=== PATIENT | female | born 1975 | race Caucasian/White ===

== ENCOUNTER 2017-06-15 05:53 | Inpatient (IN) | payer BC ==
[2017-06-13 15:11] LABS: WBC (NOT ORDERED) (RFLEX) 0 (0-5)
[2017-06-13 15:52] LABS: BASOPHILS 0.1 %; BASOPHILS ABSOLUTE 0.01 10/3/uL (0.0-0.16); EOSINOPHILS 1.3 %; EOSINOPHILS ABSOLUTE 0.12 10/3/uL (0.0-0.53); HEMATOCRIT 39.7 % (36.0-48.0); HEMOGLOBIN 12.9 g/dL (12.0-16.0); IMMATURE GRANULOCYTES 0.2 %; IMMATURE GRANULOCYTES ABSOLUTE 0.02 10/3/uL (0.0-0.11); LYMPHOCYTES 37.9 %; LYMPHOCYTES ABSOLUTE 3.37 10/3/uL (0.67-4.30); MEAN CORPUS HGB CONC 32.5 g/dL (32.0-36.0); MEAN CORPUSCULAR HEMOGLOB 29.7 pg (26.0-34.0); MEAN PLATELET VOLUME 11.5 fL (9.2-13.0); MONOCYTES ABSOLUTE 0.62 10/3/uL (0.21-1.20); NEUTROPHILS 53.5 %; NEUTROPHILS ABSOLUTE 4.75 10/3/uL (2.02-8.40); PLATELET COUNT 268 10/3/uL (150-400); RBC DISTRIBUTION WIDTH 13.2 % (12.0-16.0); RED CELL COUNT 4.34 10/6/uL (4.0-5.6); WHITE BLOOD CELLS 8.9 10/3/uL (4.5-10.5)
[2017-06-13 15:53] LABS: MANUAL DIFF NO %; MEAN CORPUSCULAR VOLUME 91.5 fL (80-100)
[2017-06-13 15:59] LABS: INTERNATIONAL NORMAL RATI 1.1 UNITS (-); PROTIME (NOT ORD) 13.9 SEC (12.0-14.5)
[2017-06-13 16:43] LABS: ALBUMIN 3.9 G/DL (3.5-5.0); ALKALINE PHOSPHATASE 58 U/L (45-117); BUN (BLOOD UREA NITROGEN) 15 MG/DL (6-23); CALCIUM, SERUM 9.3 MG/DL (8.5-10.4); CHLORIDE, SERUM 104 MMOL/L (96-112); CHOL/HDL RATIO(NOT ORDER) 3.6 (0-5); CHOLESTEROL 178 MG/DL (< 200); CO2 (CARBON DIOXIDE) 27 MMOL/L (24-34); CREATININE 0.78 MG/DL (0.55-1.02); GFR AFRICAN AMERICAN 109 ML/MIN (>=60); GFR NON AFRICAN AMERICAN 94 ML/MIN (>=60); GLOBULIN 3.8 G/DL (2.5-4.1); GLUCOSE, SERUM 88 MG/DL (60-99); HDL CHOLESTEROL 49 MG/DL (> 49); IRON, SERUM 41 MCG/DL (35-150); LDL CHOLESTEROL 106 MG/DL (< 130); NON-HDL CHOLESTEROL 129 MG/DL (< 160); POTASSIUM, SERUM 3.7 MMOL/L (3.5-5.3); SGOT(AST) 33 U/L (5-40); SGPT(ALT) 57 U/L (5-65); SODIUM, SERUM 140 MMOL/L (135-148); TOTAL BILIRUBIN 0.5 MG/DL (0-1.2); TOTAL PROTEIN 7.7 G/DL (6.0-8.5); TRIGLYCERIDE 119 MG/DL (< 150)
[2017-06-13 16:44] LABS: FOLATE 43.8 NG/ML (>5.2)
[2017-06-13 17:01] LABS: ASCORBIC ACID (UR NOT ORDER) NEG (NEG); BILIRUBIN, URINE NEGATIVE (NEG); KETONE, URINE 20 MG/DL (NEG); LEUKOCYTE ESTERASE(NOT OR NEG (NEG)
[~2017-06-15] VITALS: Ht 157.5 cm; Wt 106.4 kg
--- NOTE | ~2017-06-15 | OP ---
Record Of Operation [facility] [place] [address] [place]. [address] NAME: TAHMINA ORNELAS : 77 STATUS : ADM IN PAT#: [id number] AGE: 42 ADM/REG DATE : 06/15/17 MR#: [id number] REPORT SERV DATE: 06/15/17 DICTATED BY: ESPERANZA CABRERA DATE: 06/15/17 REPORT STATUS : Draft TRANSCRIBED BY: DELFINO DATE: 06/15/17 DATE OF PROCEDURE: PREOPERATIVE DIAGNOSIS: Morbid obesity. POSTOPERATIVE DIAGNOSIS: Morbid obesity. OPERATION: Laparoscopic sleeve gastrectomy. ANESTHESIA: General endotracheal. COMPLICATIONS: None. INDICATION FOR OPERATION: This is a 42-year-old white female with morbid obesity with a BMI of 40 and a weight of 222.2 pounds and associated insulin-resistant polycystic ovarian syndrome, hypertension, arthropathy, GE reflux disease, and urinary incontinence. DESCRIPTION OF OPERATION: The patient was taken to the operating room, and after adequate anesthesia, she was prepped and draped in a sterile manner. A total of five trocars were placed in the upper abdomen and carefully we the left lobe of the liver and carefully we identified the upper stomach anatomy. I removed some of the epiphrenic fat pad on top of the stomach. I did not see any evidence of any significant hiatal defect. Each junction was in the intraabdominal position. We were able to enter the lesser sac at the level of the lower body of the stomach next to the greater curvature with the Harmonic scalpel and then dissected the greater curvature all the way up to the fundus and mobilized the fundus all the way up to the left ulises. The left ulises was completely dissected posteriorly and all the posterior attachments were taken down to mobilize completely the stomach and then continued dissection in the greater curvature all the way down to the distal antrum to about 3 cm or so from the pylorus. Then, we introduced a 36-Indian blunt- tip bougie suction catheter all the way down to the distal antrum and put it on suction to delineate well the stomach and started stapling about 5 cm from the pylorus using the [place] automatic stapler with a green load and staple reinforcement using the Seamguard. We used a total of four staplings from the bottom to the top. Staple line looked intact. There was no evidence of bleeding or oozing. After checking the staple line, she was having a little bit of oozing on the top stapling, so we did put a suture in a [id number] on the bleeding spot with a piece of omentum sutured on top of it and that stopped the oozing. Then, we tacked the greater omentum into the staple line to the top, middle, and lower portion with interrupted Vicryl 2-0 sutures. I removed the calibration tube and put it in and out to verify there was no evidence of obstruction and then removed the stomach specimen through the 15 mm trocar site after we stretched it with a Zoë and then closed that fascial defect with an EFx fascial closure device using a Vicryl #0. I then removed all the trocars and liver retractor under direct visualization and closed all the incision with subcuticular Monocryl 4-0. The patient tolerated the procedure well, did not have any problems. Record Of Operation [address] [place]. [address] NAME: TAHMINA ORNELAS : 77 STATUS : ADM IN [facility]#: [id number] AGE: 42 ADM/REG DATE : 06/15/17 MR#: [id number] REPORT SERV DATE: 06/15/17 DICTATED BY: ESPERANZA CABRERA DATE: 06/15/17 REPORT STATUS : Draft TRANSCRIBED BY: DELFINO DATE: 06/15/17 ADY Esperanza Lubin M.D. / [id number] CC: Esperanza Cabrera M.D.
--- NOTE | ~2017-06-15 | HP ---
History And Physical [facility] [address] [place]. [address] NAME: TAHMINA ORNELAS : 77 STATUS : PRE IN PAT#: [id number] AGE: 42 ADM/REG DATE : MR#: [id number] REPORT SERV DATE: 06/14/17 DICTATED BY: ESPERANZA CABRERA DATE: 06/14/17 REPORT STATUS : Draft TRANSCRIBED BY: MODL DATE: 06/14/17 DATE OF ADMISSION: 06/15/2017 DICTATED BY: Gema Foster APRN, CERTIFIED PEDORTHOTIST-C dictating for Dr. Esperanza Rueda. CHIEF COMPLAINT: Morbid obesity. HISTORY OF PRESENT ILLNESS: The patient is a pleasant 42-year-old female, who presents for consideration for bariatric surgery, specifically the sleeve gastrectomy for the treatment of morbid obesity. She is considered bariatric surgery for the last few years and has attended an informational seminar in the last few months here in our office. She states she has struggled with her weight since early adulthood and reports a maximum weight of approximately 250 pounds around 2006. She has tried multiple attempts at weight loss in the past including the [employer] Diet, a vegan diet, no sodas, and metformin. She has successfully lost 30 to 40 pounds through her efforts. PAST MEDICAL HISTORY: 1. Insulin resistance. 2. Polycystic ovarian syndrome. 3. Essential hypertension. 4. Arthropathy, multiple joints. 5. GERD. 6. Urge incontinence. PAST SURGICAL HISTORY: 1. Breast surgery, 1996; bilateral breast reduction. 2. Abdominoplasty, 2001. 3. Laparoscopic cholecystectomy, 2010. 4. Tonsillectomy, 2012. 5. Bilateral glaucoma procedure, 2015. FAMILY HISTORY: The patient has a significant family history including father and mother both having myocardial infarction at an early age. Father's age was approximately 40 years of age, mother was 60. Mother additionally had a history of obesity, diabetes, essential hypertension, dyslipidemia, gout, and arthritis. SOCIAL HISTORY: The patient is a female. She currently works position classification specialist as an addiction counselor. She denies current nicotine use. However, she smoked for approximately two years, quitting in 2009. She smoked about one pack per week during that time. She denies social EtOH use or abuse. CURRENT MEDICATIONS: The patient's current medications include losartan 100 mg/hydrochlorothiazide 12.5 mg, metformin 500 mg, rizatriptan 10 mg, sertraline 100 mg, topiramate 100 mg, and verapamil ER 120 mg. ALLERGIES: NO KNOWN DRUG ALLERGIES. History And Physical [address] [place]. [address] NAME: TAHMINA ORNELAS : 77 STATUS : PRE IN PAT#: [id number] AGE: 42 ADM/REG DATE : MR#: [id number] REPORT SERV DATE: 06/14/17 DICTATED BY: ESPERANZA CABRERA DATE: 06/14/17 REPORT STATUS : Draft TRANSCRIBED BY: DELFINO DATE: 06/14/17 REVIEW OF SYSTEMS: Please see HPI and past medical history. PHYSICAL EXAMINATION: VITAL SIGNS: 42-year-old female. Height 5 feet 2.5 inches, weight 222.2 pounds, BMI 40. VITAL SIGNS: Stable. The patient is afebrile. GENERAL APPEARANCE: Well nourished, morbidly obese, no acute distress, ambulating normally. HEENT: Head, pupils are equal, round, reactive to light. Glasses are in place. Ears, nose, and throat, ENT within normal limits. NECK: Supple. Trachea midline. No masses. CARDIOVASCULAR: Heart auscultation regular rate and rhythm. CHEST: No discomfort on palpation. LUNGS: Respiratory effort, no dyspnea. Auscultation. No wheezes, rales, crackles, rhonchi. Breath sounds are normal and clear to auscultation. ABDOMEN: No tenderness, guarding, masses. Abdomen is soft, obese, nondistended. Bowel sounds normal. PSYCHIATRIC: Good judgment and insight. Normal mood and affect. The patient is active and alert. Oriented to time, place, and person. LABORATORY DATA: Labs have been completed according to protocol and pre-admission testing and are within normal limits for surgery. A bariatric upper GI study reveals a small hiatal hernia with gastric esophageal reflux. ASSESSMENT AND PLAN: The patient will be admitted inpatient for a sleeve gastrectomy for the treatment of morbid obesity, having a BMI of 40, and a weight of 222.2 pounds. According to her current height and weight, she has 109.7 pounds of excess weight. This patient fulfills the NIH guidelines for bariatric surgery according to the 1991 consensus having either BMI of more than 40 kg/sq m or BMI between 35 and 40 kg/sq m with associated comorbidities. Has been overweight at least five years and tried to lose weight several times and failed to maintain weight loss even with physician supervised programs. Surgical weight loss options were presented including the Ravindra-en-Y gastric bypass, biliopancreatic diversion with duodenal switch, sleeve gastrectomy, and adjustable gastric band. This patient chosen a sleeve gastrectomy surgery because of the features of no need for adjustments and less invasive than Ravindra-en-Y gastric bypass with less risk of infection. The gastric bypass was not an option for this patient because of the invasiveness of the procedure, the associated risk, and complications. The sleeve gastrectomy surgery in our experience, can give this patient an average of 50% to 60% excess weight loss over the next 12 to 18 months. The patient is aware of the risks and complications associated with this procedure, which include staple leak, bleeding, obstruction, and infection, which were discussed in length. Also this patient understands the importance of followup in order to achieve good result. Finally, this patient has completed a comprehensive educational session through [facility] Multidisciplinary team program and is ready to proceed with surgery. History And Physical [address] [place]. [address] NAME: TAHMINA ORNELAS : 77 STATUS : PRE IN PAT#: [id number] AGE: 42 ADM/REG DATE : MR#: [id number] REPORT SERV DATE: 06/14/17 DICTATED BY: ESPERANZA CABRERA DATE: 06/14/17 REPORT STATUS : Draft TRANSCRIBED BY: DELFINO DATE: 06/14/17 ELIZABETH/DELFINO Esperanza Lubin M.D. / [id number] CC: Abi Condon M.D.
[~2017-06-15 05:53] MED LIST: ACET500CAP PO; AMB10 PO; BYDUREON SQ; FLEX PO; GLUCPH PO; HYZAAR1 TAB PO; ISOPTIN SR120 MG PO; MAXALT10 MG PO; MAXIMUM D3 PO; MELATONIN5 M1 PO; PROAIR HFA INH; ULTRAM50 PO
[2017-06-16] MEDS ORDERED: SUCR PO (13:54)
== END 2017-06-16 15:27 | disposition home or self-care (01) | DRG 621 ==
LOC: ENRESERV → ENRESERVDT → ENRESERVTM → 2SO 05:53 → SDC/OF 05:53 → PACU 10:22 → 2SO 12:35
PROVIDERS: Surgery
PROC: 0DB64Z3 Excision of Stomach, Percutaneous Endoscopic Approach, Vertical (ICD-10-PCS; principal; 2017-06-15 07:45)
DX: E66.01 Morbid (severe) obesity due to excess calories (principal); I10 Essential (primary) hypertension; Z68.41 Body mass index [BMI] 40.0-44.9, adult; E11.9 Type 2 diabetes mellitus without complications; E28.2 Polycystic ovarian syndrome; K21.9 Gastro-esophageal reflux disease without esophagitis; M12.9 Arthropathy, unspecified; R32 Unspecified urinary incontinence; K44.9 Diaphragmatic hernia without obstruction or gangrene; Z98.890 Other specified postprocedural states; Z82.49 Family history of ischemic heart disease and other diseases of the circulatory system; Z83.3 Family history of diabetes mellitus; Z82.61 Family history of arthritis; Z87.891 Personal history of nicotine dependence
CPT/HCPCS: 74246; 80053; 80061; 81001; 82607; 82746; 82962; 83036; 83540; 84443; 84703; 85025; 85610; 85730; 88307; 93005; A9270-GY; C9113; J0690; J2250; J2270; J2405; J2710; J2795; J3010